=== PATIENT | female | born 1950 | race Caucasian/White ===

== ENCOUNTER → 2017-02-14 | Outpatient (CLI) | payer MEDICARE, OTHER ==
--- NOTE | ~2017-02-14 | MY26 ---
[facility] A Service of [facility] RADIOLOGY TEXT RESULTS PATIENT: ABRAM DEL CASTILLO LOCATION: [facility] : 50 UNIT #: [id number] AGE: [address]: SANTOSH HAMM APRN SEX: F ORDER DR: [id number] [facility] [address] [place], [place] [address] [id number] O MR#: [id number] Acc #: [id number] NAME: ABRAM DEL CASTILLO : 1950 SEX: F STUDY DATE/TIME: 02/14/2017 11:28 UNIT: [facility] ROOM: STUDY DESCRIPTION: [facility] DIAGNOSTIC W/ CAD BILAT Attending Physician: Santosh Hamm A.P.R.N. Referring Physician: Santosh Hamm A.P.R.N. Ordering Physician: Physician Non-Staff Primary Care Physician: Edilberto Diaz M.D. MEDICAL IMAGING REPORT This report is preliminary unless electronic signature is present EXAM Bilateral diagnostic mammogram INDICATIONS Followup left breast cancer which was diagnosed in August 2016. The patient had a lumpectomy. Comparison studies are 05/03/2016 and 04/10/2016 and 02/10/15. FINDINGS MLO and CC digital views of each breast were obtained. The study was reviewed with an FDA-approved CAD. The right breast is stable and negative completely fatty replaced. There are expected postop change in left breast with removal of the calcifications that were seen in the upper outer quadrant. There is minimal postoperative skin thickening. This is probably due to radiation therapy as well. IMPRESSION Expected postoperative and radiation therapy changes left breast. Calcifications have been removed. There is no evidence of recurrent malignancy. Patients over the age of 40 are entered into a reminder system with target due date for the next mammogram. A result letter will also be sent to the patient. BIRADS: 2 - benign findings Dictated by... Alex Calvillo M.D. [facility] A Service of [facility] RADIOLOGY TEXT RESULTS PATIENT: ABRAM DEL CASTILLO LOCATION: [facility] : 50 UNIT #: [id number] AGE: [address]: SANTOSH HAMM APRN SEX: F ORDER DR: THIS IS AN ELECTRONICALLY VERIFIED REPORT Alex Calvillo M.D. at 02/14/2017 2:41 PM LENIN/rakel TD: 02/14/2017 14:22 JOB #: [id number] MEDICAL IMAGING REPORT Page 1 of 1 COPY
== END | disposition home or self-care (01) ==
LOC: CMAM 02-13 10:00
DX: Z08 Encounter for follow-up examination after completed treatment for malignant neoplasm (principal); Z98.890 Other specified postprocedural states; Z92.3 Personal history of irradiation
CPT/HCPCS: G0204